=== PATIENT | male | born 1930 | race Two or more races ===

== ENCOUNTER 2016-04-07 20:12 | Emergency (ER) | payer MEDICARE, MEDICAID ==
[~2016-04-07] VITALS: Ht 152.4 cm; Wt 68.0 kg
[~2016-04-07 20:12] MED LIST: CLOP75TA28 PO; DOCU-80 PO
[2016-04-07 20:48] LABS: Basophils # (auto) 0.1 uL; Basophils % (auto) 1.2 % (0.0-2.0); Eosinophils # (auto) 0.4 uL; Eosinophils % (auto) 3.6 % (0.0-7.0); Hematocrit 36.2 % (41.0-53.0); Hemoglobin 11.6 g/dL (13.5-17.5); Lymphocytes # (auto) 1.4 uL; Lymphocytes % (auto) 12.9 % (10.0-50.0); Mean Corpuscular Hemoglobin 27.9 pg (28.0-32.0); Mean Corpuscular Hgb Conc. 31.9 g/dL (32.0-36.0); Mean Corpuscular Volume 87.3 fL (80.0-100.0); Mean Platelet Volume 8.8 fL (7.4-10.4); Monocytes # (auto) 0.7 uL; Monocytes % (auto) 6.5 % (0.0-12.0); Neutrophils # (auto) 8.3 uL; Neutrophils % (auto) 75.8 % (37.0-80.0); Platelet Count (auto) 299 10^3/uL (140-450); Red Cell Distribution Width 16.1 % (11.6-16.0); White Blood Cell 10.9 10^3/uL (4.4-10.8)
[2016-04-07 21:22] LABS: Albumin 3.3 g/dL (3.4-5.0); Calcium 8.8 mg/dL (8.5-10.1); Magnesium 2.4 mg/dL (1.6-2.6); Potassium 3.3 mmol/L (3.5-5.1)
[2016-04-07 21:24] LABS: BUN/Creatinine Ratio 12.3
[2016-04-07 21:27] LABS: Bilirubin, Total 0.8 mg/dL (0.2-1.0); Total Protein 6.5 g/dL (6.4-8.2)
[2016-04-07] MEDS ORDERED: IPRATROPIUM BROM 0.5 MG/2.5ML INH SOL NEB ONE (21:45)
[2016-04-07] MEDS ORDERED: ALBUTEROL SULF 2.5 MG/0.5ML(0.5%) NEB SOLN NEB ONE (21:45)
[2016-04-07] MEDS ORDERED: POTASSIUM CHL 20 Meq TABLET PO ONE (22:30)
[2016-04-07] MEDS ORDERED: MORPHINE SULF INJ 2 MG/ML SYRINGE 1ML IV ONE (22:45)
[2016-04-07] MEDS ORDERED: ONDANSETRON HCL 4 MG/2 ML VIAL IV ONE (22:45)
[2016-04-07] MEDS ORDERED: traMADol HCL 50 MG TAB PO ONE (23:00)
[2016-04-07 23:02] VITALS: BP 129/88
== END 2016-04-08 00:26 | disposition home or self-care (01) ==
LOC: ER 20:16
DX: K57.30 Diverticulosis of large intestine without perforation or abscess without bleeding (principal); N28.1 Cyst of kidney, acquired; K86.1 Other chronic pancreatitis; J44.9 Chronic obstructive pulmonary disease, unspecified; F17.210 Nicotine dependence, cigarettes, uncomplicated; J42 Unspecified chronic bronchitis; K59.00 Constipation, unspecified; I12.9 Hypertensive chronic kidney disease with stage 1 through stage 4 chronic kidney disease, or unspecified chronic kidney disease; D64.9 Anemia, unspecified; E87.6 Hypokalemia; E44.1 Mild protein-calorie malnutrition; Z68.29 Body mass index [BMI] 29.0-29.9, adult; N18.3 Chronic kidney disease, stage 3 (moderate); Z90.49 Acquired absence of other specified parts of digestive tract; Z88.0 Allergy status to penicillin; Z88.6 Allergy status to analgesic agent; Z88.2 Allergy status to sulfonamides; Z86.73 Personal history of transient ischemic attack (TIA), and cerebral infarction without residual deficits
CPT/HCPCS: 36415; 71010; 74176; 80053; 83690; 83735; 84484; 85025; 93005; 96374; 99285; J2405